=== PATIENT | male | born 1935 ===

== ENCOUNTER 2021-07-01 10:39 | Day surgery (SDC) | payer MEDICARE ==
[~2021-07-01 10:39] MED LIST: Metoclopramide 10 MG/2 ML SDV IV PRN
[2021-07-01] MEDS: Sodium Chloride 0.9% 1,000 ML IV SCH (11:30)
== END 2021-07-01 15:05 | disposition home or self-care (01) ==
LOC: LB.SDS 10:39
PROVIDERS: ATTEND Surgery
DX: K57.30 Diverticulosis of large intestine without perforation or abscess without bleeding (principal); Z98.890 Other specified postprocedural states; K63.9 Disease of intestine, unspecified
CPT/HCPCS: J2704; J7030